=== PATIENT | female | born 1970 | race Caucasian/White ===

== ENCOUNTER 2020-09-03 09:19 | Emergency (ER) | payer MEDICAID ==
[~2020-09-03] VITALS: Ht 165.1 cm; Wt 100.0 kg
[~2020-09-03 09:19] MED LIST: NEOM10DR11 OT
[2020-09-03] MEDS ORDERED: CIPDEX LEFT EAR (09:54)
[2020-09-03 10:03] VITALS: BP 152/90
== END 2020-09-03 10:12 | disposition home or self-care (01) ==
LOC: ER 09:19
DX: H60.92 Unspecified otitis externa, left ear (principal); H91.91 Unspecified hearing loss, right ear
CPT/HCPCS: 99283